=== PATIENT | female | born 1980 | race Caucasian/White ===

== ENCOUNTER 2020-12-22 00:47 | Inpatient (IN) | payer BC ==
[2020-12-22] MEDS ORDERED: Misoprostol 200 MCG Tab PO PRN (01:50)
[2020-12-22] MEDS ORDERED: Sodium Chloride 0.9% 10 ML Syringe FLUSH PRN (01:50)
[2020-12-22] MEDS ORDERED: Tranexamic Acid 1,000 MG in Sodium Chloride 0.9% 100 ML IV PRN (01:50)
[2020-12-22] MEDS ORDERED: Lidocaine 1% 50 ML MDV INJECT PRN (01:50)
[2020-12-22] MEDS ORDERED: Butorphanol 1 MG/ML SDV IVPUSH PRN (01:50)
[2020-12-22] MEDS ORDERED: Water For Irrigation,Sterile 1,000 ML Container IRR PRN (01:50)
[2020-12-22] MEDS ORDERED: Sodium Chloride 0.9% 10 ML SDV IV PRN (01:50)
[2020-12-22] MEDS ORDERED: Methylergonovine 0.2 MG/1 ML Amp IM PRN (01:50)
[2020-12-22] MEDS ORDERED: Carboprost Tromethamine 250 MCG/1 ML Amp IM PRN (01:50)
[2020-12-22] MEDS ORDERED: Sodium Chloride 0.9% 2.5 ML Syringe FLUSH PRN (01:50)
[2020-12-22] MEDS ORDERED: Nalbuphine 10 MG/1 ML Vial IVPUSH PRN (01:50)
[2020-12-22] MEDS ORDERED: Oxytocin/0.9 % Sodium Chloride 30 UNIT/500 ML BAG IV SCH ×2 (02:00→04:15)
[2020-12-22] MEDS ORDERED: Lactated Ringers 1,000 ML IV SCH (02:00)
[2020-12-22] MEDS ORDERED: Ondansetron 4 MG/2 ML SDV ONE (02:58)
[2020-12-22] MEDS ORDERED: Ondansetron 4 MG/2 ML SDV IVPUSH SCH (03:30)
[2020-12-22] MEDS ORDERED: Ondansetron 4 MG/2 ML SDV IVPUSH PRN (03:46)
[2020-12-22] MEDS ORDERED: Terbutaline 1 MG/ML SDV SUBCUT PRN (04:11)
[2020-12-22] MEDS ORDERED: Witch Hazel Medicated Pads 40/Jar TOP PRN (05:27)
[2020-12-22] MEDS ORDERED: Benzocaine/Menthol 20%-0.5% Spray 78 GM Cannister TOP PRN (05:27)
[2020-12-22] MEDS ORDERED: oxyCODONE 5 MG Tab PO PRN (05:27)
[2020-12-22] MEDS ORDERED: Lanolin 100% Cream 7 GM Tube TOP PRN (05:27)
[2020-12-22] MEDS ORDERED: Bisacodyl 10 MG Supp RECTAL PRN (05:27)
[2020-12-22] MEDS ORDERED: Acetaminophen 500 MG Tab PO PRN (05:27)
--- NOTE | 2020-12-22 05:36 | PCM.OPNOTE ---
- General Post-Op/Procedure Note Date of Surgery/Procedure: 12/22/20 Operative Procedure(s): /IP-precipitous Findings: Viable male APGARs4, 9 weight 3080 gm. Spontaneous delivery intact placenta with 3V cord--meconium stained Pre Op Diagnosis: 39/2 week IUP. SROM/active labor. Meconium stained amniotic fluid Post-Op Diagnosis: Same Primary Surgeon: Yanira Park EBL in mLs: 250 Complications: none known Condition: Stable Free Text/Narrative:: Dictation [id number]
[2020-12-22] MEDS: Ibuprofen 800 MG Tab PO PRN ×2 (05:49→10:35)
[2020-12-22] MEDS: Acetaminophen 500 MG Tab PO PRN ×2 (05:50→19:52)
[2020-12-22] MEDS: Docusate Sodium 100 MG Cap PO PRN ×2 (05:55→19:52)
--- NOTE | 2020-12-22 06:47 | OR ---
SURGEON: Yanira Park M.D. DATE OF PROCEDURE: 12/22/2020 PREOPERATIVE DIAGNOSES: 1. 39-2/7 weeks' intrauterine . 2. Spontaneous rupture of membranes with active labor. 3. Meconium-stained amniotic fluid. POSTOPERATIVE DIAGNOSES: 1. 39-2/7 weeks' intrauterine . 2. Spontaneous rupture of membranes with active labor. 3. Meconium-stained amniotic fluid. PROCEDURE: Spontaneous vaginal delivery, intact perineum, precipitous. ANESTHESIA: None. ESTIMATED BLOOD LOSS: 250 mL. COMPLICATIONS: None known. FINDINGS: Viable male, score 4 at 1 minute, 9 at 5 minutes. Weight of 3080 g. Spontaneous delivery, intact placenta, 3-vessel cord. Meconium-stained fluid noted. DISPOSITION: Infant to nursery, Mom in LDRP, stable. PROCEDURE IN DETAIL: Hallie is a 40-year-old G3, P0, at 39-2/7 weeks' gestational age, who presented on the development educator on 12/22/2020 with leakage of fluid since approximately 11 p.m. on late evening of 12/21/2020. She noticed that there was an abnormal coloration to the fluid. She is group B beta strep negative. Upon arrival, patient was found to be 1 to 2 cm with spontaneous rupture of membranes. Meconium-stained fluid was noted. heart tones category 1. The patient was admitted, routine labs drawn. COVID is negative. The patient was observed, initially was not uncomfortable and had no evidence of regular contractions, but at approximately 2 a.m. she began having more regular contraction, became more uncomfortable. Shortly before 5 a.m., she was found to be 4 to 5 cm. I was not notified at this time by nursing staff that she was making cervical change, and within the next few minutes progressed to 8 cm. This was when I was called by nursing staff and notified. I presented immediately for delivery. Upon my arrival, Hallie had moved rapidly to complete, feeling the urge to push. She delivered 's head atraumatically spontaneously, with nursing staff attending. Remainder of body delivered according to them. Cord was clamped x2 and cut. Upon my arrival, infant was pink and breathing spontaneously and crying. Cord arterial, cord venous, cord blood sampling was obtained. Pressure was applied while the placenta was delivered spontaneously intact. There was meconium-stained membranes noted. Vigorous fundal uterine massage was then applied, while 30 units of Pitocin was delivered in 500 mL of fluid. Upon inspection of cervix, vaginal sidewall, perineum, these were found to be intact. Uterus remained firm. Hemostasis evident. Sponge count and instrument count were correct. The patient remained in LDRP in stable condition. to nursery. We will resume her Lovenox prophylaxis for her heterozygous factor V Leiden mutation in the morning. SHAJI / SLAVA /[id number]
[2020-12-23] MEDS: Ibuprofen 800 MG Tab PO PRN (07:36)
[2020-12-23] MEDS ORDERED: Enoxaparin 40 MG/0.4 ML Syringe SUBCUT SCH (09:00)
[2020-12-23] MEDS: Docusate Sodium 100 MG Cap PO PRN (10:03)
--- NOTE | 2020-12-23 13:31 | PCM.PNPP ---
- General Info Date of Service: 12/23/20 Functional Status: Reports: Pain Controlled, Tolerating Diet, Ambulating, Urinating - Review of Systems General: Reports: No Symptoms HEENT: Reports: No Symptoms Pulmonary: Reports: No Symptoms Cardiovascular: Reports: No Symptoms Gastrointestinal: Reports: No Symptoms Genitourinary: Reports: No Symptoms Musculoskeletal: Reports: No Symptoms Skin: Reports: No Symptoms Neurological: Reports: No Symptoms Psychiatric: Reports: No Symptoms - General Info Date of Service: 12/23/20 - Patient Data Vital Signs - Most Recent: Last Vital Signs Temp 36.2 C 12/23/20 07:15 Pulse 72 12/23/20 07:15 Resp 16 12/23/20 07:15 BP 110/80 12/23/20 07:15 Pulse Ox 98 12/23/20 07:15 Weight - Most Recent: 78.018 kg Lab Results - Last 24 Hours: Laboratory Results - last 24 hr 12/23/20 Range/Units 05:25 Hgb 12.6 (12.0-16.0) g/dL Hct 39.2 (36.0-46.0) % Med Orders - Current: Current Medications Acetaminophen (Tylenol Extra Strength) 500 mg PO Q4H PRN PRN Reason: Pain Acetaminophen (Tylenol Extra Strength) 1,000 mg PO Q4H PRN PRN Reason: Pain Last Admin: 12/22/20 19:52 Dose: 1,000 mg Documented by: Benzocaine/Menthol (Dermoplast Pain Relief 20%-0.5% [place]) 78 gm TOP ASDIRECTED PRN PRN Reason: Perineal Comfort Measure Last Admin: 12/22/20 05:57 Dose: 78 gm Documented by: Bisacodyl (Dulcolax) 10 mg RECTAL ONETIME PRN PRN Reason: Constipation Carboprost Tromethamine (Hemabate Ds) 250 mcg IM ASDIRECTED PRN PRN Reason: Post Hemorrhage Docusate Sodium (Colace) 100 mg PO BID PRN PRN Reason: Constipation Last Admin: 12/23/20 10:03 Dose: 100 mg Documented by: Emollient Ointment (Lansinoh Hpa) 0 gm TOP ASDIRECTED PRN PRN Reason: Sore Nipples Last Admin: 12/22/20 05:51 Dose: 7 gm Documented by: Enoxaparin Sodium (Lovenox) 40 mg SUBCUT Q24H SCOTTIE Last Admin: 12/23/20 10:03 Dose: 40 mg Documented by: Oxytocin/Sodium Chloride (Oxytocin 30 Unit/500 Ml-Ns) 30 unit in 500 mls @ 999 mls/hr IV TITRATE SCOTTIE Last Admin: 12/22/20 04:58 Dose: 999 mls/hr Documented by: Tranexamic Acid 1,000 mg/ (Sodium Chloride) 110 mls @ 660 mls/hr IV ONETIME PRN PRN Reason: Bleeding Lactated Ringer's (Ringers, Lactated) 1,000 mls @ 150 mls/hr IV ASDIRECTED SCOTTIE Ibuprofen (Motrin) 800 mg PO Q6H PRN PRN Reason: Pain Last Admin: 12/23/20 07:36 Dose: 800 mg Documented by: Ondansetron HCl (Zofran) 4 mg IVPUSH Q6H PRN PRN Reason: Vomiting Oxycodone HCl (Oxycodone) 5 mg PO Q2H PRN PRN Reason: Pain Sodium Chloride (Saline Flush) 10 ml FLUSH ASDIRECTED PRN PRN Reason: Keep Vein Open Sodium Chloride (Saline Flush) 2.5 ml FLUSH ASDIRECTED PRN PRN Reason: Keep Vein Open Sodium Chloride (Normal Saline) 10 ml IV ASDIRECTED PRN PRN Reason: IV Use Sterile Water (Sterile Water For Irrigation) 1,000 ml IRR ASDIRECTED PRN PRN Reason: delivery Witch Chrissie (Tucks) 1 pad TOP ASDIRECTED PRN PRN Reason: comfort care Discontinued Medications Butorphanol Tartrate (Stadol) 1 mg IVPUSH Q1H PRN PRN Reason: Pain Last Admin: 12/22/20 03:31 Dose: 1 mg Documented by: Oxytocin/Sodium Chloride (Oxytocin 30 Unit/500 Ml-Ns) 30 unit in 500 mls @ 2 mls/hr IV TITRATE [facility]; Protocol Lidocaine HCl (Xylocaine 1%) 50 ml INJECT ONETIME PRN PRN Reason: Laceration repair Methylergonovine Maleate (Methergine) 0.2 mg IM ASDIRECTED PRN PRN Reason: Post Hemorrhage Misoprostol (Cytotec) 200 mcg PO ONETIME PRN PRN Reason: Post Hemorrhage Nalbuphine HCl (Nubain) 10 mg IVPUSH Q1H PRN PRN Reason: Pain (severe 7-10) Ondansetron HCl (Zofran) Confirm Administered Dose 4 mg .ROUTE .STK-MED ONE Stop: 12/22/20 02:59 Last Admin: 12/22/20 03:02 Dose: 4 mg Documented by: Ondansetron HCl (Zofran) 4 mg IVPUSH Q6H SCOTTIE Terbutaline Sulfate (Brethine) 0.25 mg SUBCUT ASDIRECTED PRN PRN Reason: Tacysystole - Interaction Infant Disposition, : in Room with Family Interaction: Holding Infant Feeding: Breastfed Infant; Nursed Well (trouble latching on the right) Support Person: - Recovery Exam Fundal Tone: Firm Fundal Level: 2 Fingerbreadths Below Umbilicus Fundal Placement: Midline Lochia Amount: Scant Lochia Color: Rubra/Red Perineum Description: Intact, Minimal Bruising/Swelling Episiotomy/Laceration: None Bladder Status: Voiding Urinary Elimination: Voided - Exam Lungs: Normal Respiratory Effort GI/Abdominal Exam: Soft, Non-Tender, No Organomegaly, No Distention Extremities: Normal Inspection, Normal Range of Motion, Non-Tender, No Pedal Edema, Normal Capillary Refill Skin: Warm, Dry, Intact - Problem List & Annotations (1) Vaginal delivery SNOMED Code(s): 252453995 Code(s): O80 - ENCOUNTER FOR FULL-TERM UNCOMPLICATED DELIVERY Status: Acute Current Visit: No - Problem List Review Problem List Initiated/Reviewed/Updated: Yes - My Orders Last 24 Hours: My Active Orders 12/23/20 13:29 Ready for Discharge [RC] PER UNIT ROUTINE - Assessment Assessment:: PPD#1 after , stable minimal lochia, denies pain. is very good on the left, but trouble latching on the right. - Plan Plan:: consider pumping on the right breast. Nursing staff notified to assist. Discharge instructions reviewed.
[2020-12-23 16:35] VITALS: BP 117/61; PULSE 77
== END 2020-12-23 17:56 | disposition home or self-care (01) | DRG 560 ==
LOC: MW.OBCHECK 00:47 → MW.OB 00:48 → MW.OBCHECK 01:51 → OBSVTOIN 04:58 → MW.OB 09:41
PROVIDERS: ADMIT Obstetrics & Gynecology; ATTEND Obstetrics & Gynecology
PROC: 10E0XZZ Delivery of Products of Conception, External Approach (ICD-10-PCS; principal; 2020-12-22)
DX: O62.3 Precipitate labor (principal); O77.0 Labor and delivery complicated by meconium in amniotic fluid; Z3A.39 39 weeks gestation of pregnancy; Z37.0 Single live birth; Z20.822 Contact with and (suspected) exposure to COVID-19
CPT/HCPCS: 36415; 59025; 59409; 82803; 85014; 85018; 85027; 86592; 86850; 86870; 86900; 86901; 88307; A9270-GY; J0595; J1650; J2405; J2590; U0002